=== PATIENT | male | born 1945 | race Caucasian/White ===

== ENCOUNTER → 2022-04-28 10:24 | Outpatient (BNVA) | payer MEDICARE, SELFPAY | PROVIDERS: PCP Internal Medicine; Visit Provider Hospitalist | DX: J44.9 Chronic obstructive pulmonary disease, unspecified (principal); J96.11 Chronic respiratory failure with hypoxia; J18.9 Pneumonia, unspecified organism | CPT/HCPCS: 99202 ==

== ENCOUNTER 2022-05-04 13:57 | Outpatient (REF) | payer MEDICARE, SELFPAY ==
--- NOTE | 2022-05-04 16:23 | PFT_ITS ---
FINDINGS: Forced vital capacity 84%, FEV1 38%, FEV1/FVC ratio is 33. [id number] 15% and MVV 36%. Postbronchodilator therapy, there is no significant change. Total lung capacity 95%. Residual volume 120%. Diffusion capacity 27%. CONCLUSION: These results are consistent with very severe obstructive airway disorder. There is no significant response to bronchodilator therapy. Clinical correlation is recommended. MD INESSA Thompson/EDGAR / [id number]
== END 2022-05-04 13:58 | disposition home or self-care (01) ==
LOC: HO.RESP 13:57
PROVIDERS: PCP Internal Medicine; Visit Provider Hospitalist
DX: J44.9 Chronic obstructive pulmonary disease, unspecified (principal)
CPT/HCPCS: 94060; 94727; 94729

== ENCOUNTER → 2022-06-01 13:08 | Outpatient (REF) | payer MEDICARE, SELFPAY ==
--- NOTE | 2022-06-01 13:18 | ECG_ITS ---
Test Reason : COPD Blood Pressure : / mmHG Vent. Rate : 080 BPM Atrial Rate : 000 BPM P-R Int : 000 ms QRS Dur : 152 ms QT Int : 428 ms P-R-T Axes : 000 -33 044 degrees QTc Int : 493 ms Atrial fibrillation with premature ventricular or aberrantly conducted complexes Left axis deviation Right bundle branch block Abnormal ECG When compared with ECG of 14-DEC-2007 16:00, Atrial fibrillation has replaced Sinus rhythm Right bundle branch block is now Present Referred By: Urban Khan Electronically Signed By:ANUJ WORTHINGTON
== END ==
LOC: HO.CARD 13:08
PROVIDERS: PCP Internal Medicine; Visit Provider Hospitalist
DX: J44.9 Chronic obstructive pulmonary disease, unspecified (principal); J96.11 Chronic respiratory failure with hypoxia
CPT/HCPCS: 93005; 99212